=== PATIENT | female | born 1960 | race Caucasian/White ===

== ENCOUNTER 2024-01-25 12:01 | Emergency (ER) | payer OTHER, SELFPAY ==
[2024-01-25 12:06] VITALS: BP 124/90
[2024-01-25 12:36] LABS: % Basophils 0.5 % (0-2); % Eosinophils 0.1 % (0-6); % Immature Granulocytes 0.3 % (0-0.5); % Lymphocytes 26.5 % (20.5-51.1); % Monocytes 7.7 % (1.7-9.3); % Neutrophils 64.9 % (42.2-75.2); Absolute Lymphocytes 2.3 10^3/uL (1.2-3.4); Absolute Monocytes 0.7 10^3/uL (0.1-0.6); Absolute Neutrophils 5.7 10^3/uL (1.4-6.5); Hematocrit 41.8 % (37.0-47.0); Hemoglobin 13.9 g/dL (12.0-16.0); Mean Corp Hgb Conc. 33.3 g/dL (33.0-37.0); Mean Corpuscular Volume 90.3 fL (81.0-99.0); Mean Platelet Volume 12.5 fL (7.4-10.4); Nucleated Red Blood Cells % 0 %; Platelet Count 195 10^3/uL (130-400); Red Blood Cell Count 4.63 10^6/uL (4.20-5.40); Red Cell Dist. Width 12.7 % (11.5-14.5); White Blood Cell Count 8.8 10^3/uL (4.8-10.8)
[2024-01-25 12:46] LABS: ALT (SGPT) 17 U/L (0-35); AST (SGOT) 25 U/L (14-36); Albumin 4.8 g/dl (3.5-5.0); Alkaline Phosphatase 92 U/L (38-126); Blood Urea Nitrogen 11 mg/dl (7-17); Calcium 10.2 mg/dl (8.4-10.2); Carbon Dioxide 27 mmol/L (22-30); Chloride 99 mmol/L (98-107); Glucose 111 mg/dl (70-99); Magnesium 1.7 mg/dl (1.6-2.3); Potassium 4.2 mmol/L (3.5-5.1); Sodium 134 mmol/L (135-145); Total Bilirubin 0.6 mg/dl (0.2-1.3); Total Protein 7.6 g/dl (6.3-8.2); eGFR > 60.00
[2024-01-25 13:08] VITALS: BP 153/99
[2024-01-25 14:00] VITALS: BP 134/82
[2024-01-25] MEDS: CARDIZEM 17 MG IV (14:00)
[2024-01-25 14:23] LABS: Troponin I < 0.012 ng/ml
--- NOTE | 2024-01-25 14:33 | ED.GENMED ---
History of Present Illness
General
Chief Complaint: Heart Rate Problem
Time Seen by Provider: 01/25/24 13:22
History of Present Illness
History of Present Illness:
63-year-old female with no significant past medical history presenting to the emergency department for concern of atrial fibrillation. Patient went to her city routeman today for cardiac clearance for a right elbow surgery. She was noted to be in
atrial fibrillation. Patient denies any underlying history, however does note for the past several months has been having some dizzy spells. Denies any chest pain or difficulty breathing. Does note family history of Yanna, her mother. Denies any
known cardiac history personally. Denies any recent fever. Denies abdominal pain or GI symptoms. Denies additional complaints
Past History
Past History
ED Past Medical History: GERD, HTN, Hypercholesterolemia and Other (Fibromyalgia, rheumatoid arthritis)
Social History
Tobacco: Smoker
Family History
Family History: Hypertension and CAD
Phy Exam
Physical Exam
Physical Exam:
GENERAL: Alert , in no apparent distress
EYE: pupils equal and reactive
NECK: Supple, no significant adenopathy.
ENT: o/p clr, mmm.
CARDIAC: Irregularly irregular rhythm
LUNGS: Clear breath sounds bilaterally, no acute respiratory distress, no wheezes/rales/rhonchi
ABDOMEN: Soft, without focal tenderness, no r/g, no cvat
NEUROLOGICAL: Alert and oriented, no focal neuro deficits
SKIN: Warm and dry, skin intact.
MUSCULOSKELETAL: No edema, well perfused.
PSYCH: Normal and appropriate interaction.
Course
Orders/Labs/Results
Orders:
Orders
01/25/24 12:08
EKG [Electrocardiogram (*1)] Urgent
Reason for Study: Atrial Fibrillation
EKG- Treatment ONCE
01/25/24 12:20
Complete Blood Count/With Diff Urgent
Comprehensive Metabolic Panel Urgent
Magnesium Urgent
TSH Urgent
01/25/24 13:42
Troponin I Urgent
01/25/24 13:56
Diltiazem HCl [Cardizem] 17 mg IV NOW STA
01/25/24 14:33
Electrocardiogram (*1) Urgent
Reason for Study: Atrial Fibrillation
EKG- Treatment ONCE
01/25/24 16:01
Oxycodone/Acetaminophen [Percocet 5/325] 1 tablet PO NOW STA
01/25/24 16:13
Diltiazem Extended Release [Cardizem Cd] 120 mg PO NOW STA
Abnormal Lab Results
01/25/24
12:20
MPV 12.5 H fL
(7.4-10.4)
Absolute Monos (auto) 0.7 H 10^3/uL
(0.1-0.6)
Sodium 134 L mmol/L
(135-145)
Glucose 111 H mg/dl
(70-99)
01/25/24 12:20
01/25/24 12:20
Vital Signs
Initial and Last Documented VS:
Initial Vital Signs
Temp Pulse Resp BP Pulse Ox
98.1 F 80 19 124/90 100
01/25/24 12:06 01/25/24 12:06 01/25/24 12:06 01/25/24 12:06 01/25/24 12:06
Last Documented Vital Signs
Temp Pulse Resp BP Pulse Ox
98.1 F 93 20 136/103 100
01/25/24 12:06 01/25/24 16:15 01/25/24 13:08 01/25/24 16:15 01/25/24 13:15
MDM/Problems Addressed
MDM/Problems Addressed:
63-year-old female presenting for concern of new onset A-fib. Vital signs on arrival significant for tachycardia.
On physical exam patient is well-appearing, resting comfortably, appears to be asymptomatic regarding atrial fibrillation, which is present on the monitor, confirmed by EKG. Patient called in by patient's city routeman, Dr. Chapman who recommends
diltiazem. Plan for laboratory analysis and diltiazem. Patient with low CHADS VASC score.
16:20 -patient's labs are unremarkable. After 1 dose diltiazem, converted to sinus rhythm. In discussion with patient's city routeman, recommending p.o. diltiazem and discharged home on Eliquis as well, with follow-up for stress testing, advised to
call his office tomorrow. Patient agreeable to plan. Feel patient stable for discharge. Strict return precautions communicated patient verbalized understanding
*EKG
Interpreted by ED Provider?: Yes
EKG Intrepretation Date: 01/25/24
EKG Intrepretation Time: 14:38
Interpretation: abnormal
Comparison EKG: changes noted (03/16/22)
Heart Rate: 103
Rate: tachycardiac
Rhythm: a-fib
[place]: normal axis
QRS Pattern: normal QRS
Ischemia: no ischemia
*Critical Care Note
Total Time (30-74mins, 75-104mins- exclusive of procedures): Not Applicable
ED Attending Note
-
Portions of this chart may have been created with voice recognition software.� Occasional wrong word or��sound alike� substitutions may have occurred due to the inherent limitations of voice recognition software.
Discharge Plan
Departure
Prescriptions:
No Action
rabeprazole [AcipHex] 20 MG tablet,delayed release (DR/EC)
20 mg PO DAILY
prednisone 5 MG tablet
2.5 mg PO DAILY
etanercept [Enbrel] 50 MG/ML syringe
50 mg SQ .WEEKLY
Patient Comments:
Patient thinks that it is 50mg but knows that it is auto-injector
lansoprazole [Prevacid] 30 MG capsule,delayed release(DR/EC)
30 mg PO HS Qty: 30 0RF
Referrals:
Heath Borja DO [Family Provider] -
Interventions
Interventions:
*Risk Screen - Suicide Last Done: 01/25/24 12:06
*General Assessment Last Done: 01/25/24 12:06
*Neglect/Abuse Screening Last Done: 01/25/24 12:06
ED- Cardiac Assessment Last Done: 01/25/24 13:14
ED- Pulmonary Assessment Last Done: 01/25/24 13:14
Discharge Date and Time
Print Language: YEMENI
[2024-01-25 15:00] VITALS: BP 123/67
[2024-01-25] MEDS: PERCOCET 5/325 1 TABLET PO (16:14)
[2024-01-25] MEDS: CARDIZEM CD 120 MG PO (16:15)
[2024-01-25 16:16] VITALS: BP 136/103
[2024-01-25 16:52] VITALS: BP 136/103
== END 2024-01-25 16:55 | disposition home or self-care (01) ==
LOC: EMR 12:01
PROVIDERS: Emergency Medicine; EMERGENCY PHYSICIAN Student in an Organized Health Care Education/Training Program; FAMILY PHYSICIAN Internal Medicine
DX: I48.91 Unspecified atrial fibrillation (principal); I10 Essential (primary) hypertension; K21.9 Gastro-esophageal reflux disease without esophagitis; M79.7 Fibromyalgia; M06.9 Rheumatoid arthritis, unspecified; E78.00 Pure hypercholesterolemia, unspecified; F17.200 Nicotine dependence, unspecified, uncomplicated
CPT/HCPCS: 99284; 96374; 80053; 83735; 84443; 84484; 85025; 93005

== ENCOUNTER → 2024-02-04 06:44 | Outpatient (REF) | payer OTHER, SELFPAY | LOC: RCS 06:44 | PROVIDERS: ATTENDING PHYSICIAN Student in an Organized Health Care Education/Training Program; FAMILY PHYSICIAN Internal Medicine | DX: Z01.818 Encounter for other preprocedural examination (principal); I48.0 Paroxysmal atrial fibrillation | CPT/HCPCS: 78452; 93017; A9500 ==

== ENCOUNTER 2024-09-11 18:06 | Emergency (ER) | payer MEDICARE, SELFPAY ==
[2024-09-11 18:15] VITALS: BP 178/80
[2024-09-11 18:34] VITALS: BMI 24.7
[2024-09-11 18:54] LABS: ALT (SGPT) 27 U/L (0-35); AST (SGOT) 25 U/L (14-36); Albumin 4.8 g/dl (3.5-5.0); Alkaline Phosphatase 80 U/L (38-126); Blood Urea Nitrogen 28 mg/dl (7-17); Carbon Dioxide 24 mmol/L (22-30); Chloride 98 mmol/L (98-107); Estimated Creatinine Clearance 68 ml/min; Glucose 109 mg/dl (70-99); Sodium 132 mmol/L (135-145); Total Bilirubin 0.6 mg/dl (0.2-1.3); Total Protein 6.7 g/dl (6.3-8.2); eGFR > 60.00
[2024-09-11 18:58] LABS: % Basophils 0.2 % (0-2); % Immature Granulocytes 0.3 % (0-0.5); % Monocytes 6.8 % (1.7-9.3); % Neutrophils 67.7 % (42.2-75.2); Absolute Lymphocytes 1.5 10^3/uL (1.2-3.4); Absolute Monocytes 0.4 10^3/uL (0.1-0.6); Absolute Neutrophils 4.1 10^3/uL (1.4-6.5); Hematocrit 37.9 % (37.0-47.0); Hemoglobin 12.7 g/dL (12.0-16.0); Mean Corp Hgb Conc. 33.5 g/dL (33.0-37.0); Mean Corpuscular Hgb 30.5 pg (27.0-31.0); Mean Corpuscular Volume 91.1 fL (81.0-99.0); Nucleated Red Blood Cells % 0 %; Platelet Count 215 10^3/uL (130-400); Red Blood Cell Count 4.16 10^6/uL (4.20-5.40); Red Cell Dist. Width 14.8 % (11.5-14.5)
[2024-09-11 19:00] VITALS: BP 134/74
[2024-09-11 19:07] LABS: Troponin I < 0.012 ng/ml
[2024-09-11 20:00] VITALS: BP 131/63
--- NOTE | 2024-09-11 20:02 | ED.GENMED ---
History of Present Illness
General
Chief Complaint: Chest Pain
Time Seen by Provider: 09/11/24 18:31
History of Present Illness
History of Present Illness:
64-year-old female with history of hypertension and atrial fibrillation on anticoagulation presenting to the emergency department for chest pain. Patient reports she was driving to dinner had acute onset of chest pain rating to her back and up to
her throat. Denies ever having the symptoms in the past. Intensity of pain has improved, however still present. Pain is described as sharp in quality. Denies known history of coronary artery disease. Denies difficulty breathing. Denies
abdominal pain or GI symptoms. Denies weakness or numbness to extremities. Denies fever or recent illness. Denies additional acute medical complaints.
Past History
Past History
ED Past Medical History: GERD, HTN, Hypercholesterolemia and Other (Fibromyalgia, rheumatoid arthritis)
Social History
Tobacco: Smoker
Family History
Family History: Hypertension and CAD
Phy Exam
Physical Exam
Physical Exam:
General: Well-appearing, no clinical signs of dehydration, nontoxic and in no acute distress
HEENT: protecting airway
Neck: appears supple
CV: Normal heart rate, regular rhythm, no evidence of cyanosis
Resp: No accessory muscle use, no increased work of breathing, lungs clear to auscultation bilaterally
Abd: Soft and non-distended, no tenderness to palpation
Extremities: No deformities, no swelling, no erythema
Neuro: alert, no focal neurologic deficit
: deferred
Rectal: deferred
Psych: Normal affect
Skin: Intact
Scores
Heart Score for Chest Pain Patients
STEMI patient?: No
History: Slightly or Non-Suspicious
ECG: Normal
Age: >/= 65 years
Risk Factors: 1 or 2 Risk Factors
Troponin: </= Normal Limit
Heart Score for Chest Pain Patients: 3
Heart Score Risk: 2.5% MACE over next 6 weeks
Course
Orders/Labs/Results
Orders:
Orders
09/11/24 18:07
ECG [Electrocardiogram (*1)] Urgent
Reason for Study: Chest Pain
EKG- Treatment ONCE
09/11/24 18:18
IV Insert/Care/Rem.- Treatment PRN
09/11/24 18:33
Complete Blood Count/With Diff Urgent
Comprehensive Metabolic Panel Urgent
Troponin I Urgent
09/11/24 18:44
CT Chest/abd/pelvis Angio W/wo Urgent
Comment:
Reason For Exam: chest pain going to back, hypertensive
09/11/24 19:48
Electrocardiogram (*1) Urgent
Reason for Study: Chest Pain
EKG- Treatment ONCE
09/11/24 21:34
Troponin I Urgent
09/11/24 21:36
Acetaminophen [Tylenol] 1,000 mg PO NOW STA
Abnormal Lab Results
09/11/24
18:33
RBC 4.16 L 10^6/uL
(4.20-5.40)
RDW 14.8 H %
(11.5-14.5)
MPV 13.0 H fL
(7.4-10.4)
Sodium 132 L mmol/L
(135-145)
BUN 28 H mg/dl
(7-17)
Glucose 109 H mg/dl
(70-99)
09/11/24 18:33
09/11/24 18:33
Vital Signs
Initial and Last Documented VS:
Initial Vital Signs
Temp Pulse Resp BP Pulse Ox
98.5 F 77 16 178/80 99
09/11/24 18:15 09/11/24 18:15 09/11/24 18:15 09/11/24 18:15 09/11/24 18:15
Last Documented Vital Signs
Temp Pulse Resp BP Pulse Ox
98.5 F 71 13 143/80 95
09/11/24 18:15 09/11/24 22:15 09/11/24 22:15 09/11/24 22:00 09/11/24 22:15
MDM/Problems Addressed
MDM/Problems Addressed:
64-year-old female with history of A-fib and hypertension presenting for chest pain. Vital signs on arrival are significant for high blood pressure.
On exam patient is resting comfortably, no acute distress. EKG obtained immediately upon patient's arrival, no acute ischemic changes. Lower suspicion for ACS. However patient does have cardiac risk factors and will obtain laboratory analysis
including troponin. In the setting of chest pain with radiation to the back and hypertension, aortic catastrophe is also consideration. Will plan for CT imaging of the chest.
22:30 -second troponin is negative. CT of the chest without any aortic pathology. There is mention of coronary artery disease. Repeat EKG is unchanged. On reassessment, patient notes that her chest pain has resolved and her blood pressure has
normalized without intervention. At this time do feel the patient is stable for discharge, however with close interval follow-up with senior investment analyst for potential stress testing. Strict return precautions communicated to patient verbalized
understanding
*EKG
Interpreted by ED Provider?: Yes
EKG Intrepretation Date: 09/11/24
EKG Intrepretation Time: 20:06
Interpretation: normal
Comparison EKG: no changes (01/25/24)
Heart Rate: 69
Rate: normal
Rhythm: sinus
[place]: normal axis
Interval: normal interval
QRS Pattern: normal QRS
Ischemia: no ischemia
*Critical Care Note
Total Time (30-74mins, 75-104mins- exclusive of procedures): Not Applicable
ED Attending Note
-
Portions of this chart may have been created with voice recognition software.� Occasional wrong word or��sound alike� substitutions may have occurred due to the inherent limitations of voice recognition software.
Discharge Plan
Departure
Patient Disposition: Home (Routine Discharge)
Date of Disposition: 09/11/24
Time of Disposition: 22:26
Patient with high blood pressure during this ER visit?: Yes
Condition: Good
Discharge Problem:
Chest pain, Hypertension
Instructions: Chest pain - Discharge instructions, BLOOD PRESSURE
Prescriptions:
No Action
rabeprazole [AcipHex] 20 MG tablet,delayed release (DR/EC)
20 mg PO DAILY
prednisone 5 MG tablet
2.5 mg PO DAILY
etanercept [Enbrel] 50 MG/ML syringe
50 mg SQ .WEEKLY
Patient Comments:
Patient thinks that it is 50mg but knows that it is auto-injector
lansoprazole [Prevacid] 30 MG capsule,delayed release(DR/EC)
30 mg PO HS Qty: 30 0RF
diltiazem HCl 120 mg capsule,extended release 24hr
120 mg PO DAILY Qty: 30 0RF
Eliquis 5 mg tablet
5 mg PO BID Qty: 60 0RF
Referrals:
Renan Paz MD [Active] -
Heath Borja DO [Family Provider] -
Activity Restrictions/Additional Instructions:
You were seen in the emergency department for chest pain and high blood pressure
You were found to have normal blood work, EKG and CT imaging of your chest. There was some findings of coronary artery disease. Please follow-up with your senior investment analyst for stress testing.
Please follow-up closely with your primary care physician.
Return to the emergency department for any worsening of your symptoms, or any development of chest pain, difficulty breathing, abdominal pain with persistent vomiting and inability to tolerate food or liquid by mouth (concern for dehydration),
weakness, headache or confusion, fever greater than 100.4, or any additional symptoms that are concerning to you.
Thank you for choosing [facility].
Interventions
Interventions:
*Risk Screen - Suicide Last Done: 09/11/24 18:15
*General Assessment Last Done: 09/11/24 18:15
*Neglect/Abuse Screening Last Done: 09/11/24 18:15
ED- Fall Risk Assessment Last Done: 09/11/24 18:42
*ED COVID-19 Vaccine History Last Done: 09/11/24 18:15
ED- Cardiac Assessment Last Done: 09/11/24 18:42
Discharge Date and Time
Print Language: CZECH
[2024-09-11 21:35] VITALS: BP 139/74
[2024-09-11] MEDS: TYLENOL 1000 MG PO (21:41)
[2024-09-11 22:00] VITALS: BP 143/80
[2024-09-11 22:10] LABS: Troponin I < 0.012 ng/ml
== END 2024-09-11 22:40 | disposition home or self-care (01) ==
LOC: EMR 18:06
PROVIDERS: EMERGENCY PHYSICIAN Student in an Organized Health Care Education/Training Program; FAMILY PHYSICIAN Internal Medicine
DX: R07.89 Other chest pain (principal); I10 Essential (primary) hypertension; I48.91 Unspecified atrial fibrillation; K21.9 Gastro-esophageal reflux disease without esophagitis; I25.10 Atherosclerotic heart disease of native coronary artery without angina pectoris; E78.00 Pure hypercholesterolemia, unspecified; F17.200 Nicotine dependence, unspecified, uncomplicated; M79.7 Fibromyalgia; Z79.01 Long term (current) use of anticoagulants; Z82.49 Family history of ischemic heart disease and other diseases of the circulatory system
CPT/HCPCS: 99284; 71275; 74174; 80053; 84484; 85025; 93005; Q9967

== ENCOUNTER → 2025-03-04 10:47 | Outpatient (REF) | payer MEDICARE, SELFPAY | LOC: PAVMRI 10:47 | PROVIDERS: ATTENDING PHYSICIAN Internal Medicine Rheumatology; FAMILY PHYSICIAN Internal Medicine | DX: M25.562 Pain in left knee (principal) | CPT/HCPCS: 73721 ==

== ENCOUNTER → 2025-06-26 09:07 | Outpatient (REF) | payer MEDICARE, SELFPAY | LOC: SDSPAT 09:07 | PROVIDERS: ATTENDING PHYSICIAN Internal Medicine Cardiovascular Disease; FAMILY PHYSICIAN Internal Medicine | DX: I48.0 Paroxysmal atrial fibrillation (principal) | CPT/HCPCS: 93005 ==

== ENCOUNTER 2025-06-29 09:46 | Day surgery (SDC) | payer MEDICARE, SELFPAY ==
[2025-06-26 09:37] VITALS: BMI 24.0
--- NOTE | 2025-06-26 09:51 | HPS.HSE ---
Family Physician
-
Family Physician: NO INTERVIEW UNKNOWN
Chief Complaint
-
Paroxysmal atrial fibrillation.
History of Present Illness
The patient is a 65-year-old female presenting today for paroxysmal atrial fibrillation. The patient reports a wide variety of symptoms associated with this diagnosis, which include palpitations, mild exertional shortness of breath,
dizziness, and uneasiness. She reports that she overall feels poorly when in her arrhythmia. She is on current pharmacological therapy with Diltiazem. She does report compliance with Xarelto for oral anticoagulation due to a CHADS-VASc of 3. Of
note, she does have rheumatoid arthritis for which she receives Rituximab every 6 months. She was due for a dose recently; however, this was held as the infusion center did not feel comfortable giving her this while in atrial fibrillation. By
restoring normal sinus rhythm, she hopes to go back on this medication as soon as possible. She denies any current complaints today such as chest pain, shortness of breath at rest, nausea, vomiting, diarrhea, lightheadedness, sore throat, or fever.
She does report a chronic cough at baseline, likely related to her COPD and current tobacco abuse.
Medical History
Past Medical History
Past Medical History: Reports Other
Additional Past Medical History:
1. Paroxysmal atrial fibrillation, pharmacological therapy with Diltiazem and oral anticoagulation with Eliquis.
2. Hypertension.
3. Hyperlipidemia.
4. Coronary artery calcifications on chest CTA 08/2024.
5. PVCs, asymptomatic.
6. Mild COPD.
7. Suspected obstructive sleep apnea.
8. GERD.
9. Colon polyps.
10. Diverticulosis.
11. Tremor of bilateral upper extremities.
12. Vertigo.
13. Cervical degenerative disc disease.
14. Rheumatoid arthritis, on Rituximab.
15. Osteoarthritis, status post left total knee arthroplasty, 05/22/25, and remote right elbow replacement.
16. Fibromyalgia.
17. Osteopenia.
18. Idiopathic thrombocytopenia purpura.
19. Current tobacco abuse.
Past Surgical History: Reports Other
Additional Past Surgical History:
1. Left total knee arthroplasty.
2. Right elbow replacement.
3. Bilateral carpal tunnel release.
4. Cervical surgery.
5. Appendectomy.
6. Temporal artery biopsy.
7. Colonoscopy x3.
Social History
Tobacco: Smoker (She is a current 1/2 pack per day cigarette smoker. She has been smoking over the last 50 years. )
Alcohol: Occasional
Personal:
Living: Other (She lives with her in a 1 story home. )
Family History
Family History: Not pertinent
Allergies / Home Medications
Allergy/Medication List:
Home medications:
1. Tylenol extra strength 500 mg p.o. every 6 hours as needed.
2. Eliquis 5 mg p.o. twice a day.
3. Cyanocobalamin 1 dose p.o. daily.
4. Diltiazem 120 mg p.o. twice a day.
5. Hydrocodone/acetaminophen 5/325 mg p.o. every 4 hours as needed.
6. Multivitamin 1 tablet p.o. daily.
7. Olmesartan 40 mg p.o. daily.
8. Rituximab 10 mg intravenous every 6 months.
9. Rosuvastatin 10 mg p.o. every evening.
10. Vitamin D3 1 dose p.o. daily.
Allergies: No known allergies.
Review of Systems
-
A 12 point ROS was completed and negative except as noted: Yes
Physical Exam
Vital Signs
Blood pressure 126/71. Heart rate 71. Respirations 18. Pulse ox 98% on room air.
Height 5 feet, 7 inches. Weight 69.5 kg. BMI 24.0.
Physical Exam
General: Well Developed, Well Nourished and No Apparent Distress
HEENT: NormoCephalic, Moist mucous membranes, Atraumatic and PERRLA
Respiratory: Clear
Cardiac: Regular Rhythm
GI: Soft, Non Tender and Non Distended
Musculoskeletal: Other (Well healed surgical scar of left knee. Minimal left knee swelling. The patient ambulates with a single point cane. )
Skin: Warm and Dry
Neuro: AO x 3 and Nonfocal/grossly intact
Laboratory Results
-
EKG 06/26/2025: Normal sinus rhythm.
Nuclear stress test 02/04/2024: Normal perfusion with no evidence of ischemia or infarction. Normal/low-normal left ventricular ejection fraction with no wall motion abnormality. [place] Treadmill Score +1.0 consistent with intermediate risk stress
test.
Echocardiogram 01/27/2024: There is normal biventricular systolic function ejection fraction 60 to 65%. Grade 1 diastolic dysfunction. No regional wall motion abnormalities noted. The left atrium mildly dilated remainder of chambers of normal size.
No evidence of significant valvular heart disease with trace mitral and tricuspid regurgitation. No evidence of pulmonary hypertension.
Impression/Plan
-
IMPRESSION/PLAN:
1. Paroxysmal atrial fibrillation: The patient is in need of a cardioversion with Dr. Renan Paz on 06/29/2025. The benefits and risks of the procedure have been explained to the patient. The patient understands these risks and wishes to
proceed. She will not be required to undergo a pre-procedural transesophageal echocardiogram as she has been complaint with her home oral anticoagulation. She is aware to continue her Eliquis uninterrupted prior to her procedure.
== END 2025-06-29 10:40 | disposition home or self-care (01) ==
LOC: CATH 09:46
PROVIDERS: ATTENDING PHYSICIAN Internal Medicine Cardiovascular Disease; FAMILY PHYSICIAN Internal Medicine
DX: I48.0 Paroxysmal atrial fibrillation (principal); Z53.09 Procedure and treatment not carried out because of other contraindication; D69.3 Immune thrombocytopenic purpura; E78.5 Hyperlipidemia, unspecified; F17.210 Nicotine dependence, cigarettes, uncomplicated; I10 Essential (primary) hypertension; I25.10 Atherosclerotic heart disease of native coronary artery without angina pectoris; I47.19 Other supraventricular tachycardia; J44.9 Chronic obstructive pulmonary disease, unspecified; M06.9 Rheumatoid arthritis, unspecified; M19.021 Primary osteoarthritis, right elbow; M79.7 Fibromyalgia; M85.80 Other specified disorders of bone density and structure, unspecified site; Z86.0100 Personal history of colon polyps, unspecified; Z79.01 Long term (current) use of anticoagulants; Z90.49 Acquired absence of other specified parts of digestive tract; Z96.621 Presence of right artificial elbow joint; Z96.652 Presence of left artificial knee joint; R42 Dizziness and giddiness; M50.30 Other cervical disc degeneration, unspecified cervical region; K57.90 Diverticulosis of intestine, part unspecified, without perforation or abscess without bleeding; K21.9 Gastro-esophageal reflux disease without esophagitis
CPT/HCPCS: 93005